=== PATIENT | female | born 1960 | race Caucasian/White ===

== ENCOUNTER 2017-02-19 07:32 | Emergency (ER) | payer BC ==
[2017-02-19 07:40] VITALS: BP 158/80
--- NOTE | 2017-02-19 08:21 | UC ---
Back Pain HPI - HPI Summary HPI Summary: 56 yo female with lower back pain/spasms x 1 week lifts a lot at work and that worsens symptoms no radiation of pain no UTI symptoms no bowel /bladder dysfunction - History of Current Complaint Chief Complaint: UCBackPain Stated Complaint: BACK SPASMS Time Seen by Provider: 02/19/17 08:20 Hx Obtained From: Patient Hx Last Menstrual Period: about age 49 Onset/Duration: Gradual Onset, Lasting Days Timing: Constant Severity Initially: Moderate Severity Currently: Moderate Pain Intensity: 6 - declines analgesic Pain Scale Used: 0-10 Numeric Character: Sharp, Aching, Throbbing Aggravating: Movement, Lifting, Bending Alleviating: OTC Meds Associated Signs And Symptoms: Positive: Negative Related History: Previous Back Injury - Allergies/Home Medications Allergies/Adverse Reactions: Allergies Allergy/AdvReac Type Severity Reaction Status Date / Time Codeine AdvReac Nausea Verified 02/19/17 07:41 PMH/Surg Hx/FS Hx/Imm Hx Previously Healthy: Yes Cardiovascular History Of: Reports: Cardiac Disorders - CT and stents 2011, Hypertension - Surgical History Surgical History: Yes Surgery Procedure, Year, and Place: Right knee 1974; left knee 1985, appy, b/l inguinal hernia - Family History Known Family History: Positive: Hypertension - Social History Alcohol Use: Daily Alcohol Amount: 4 beers Substance Use Type: Marijuana Substance Use Comment - Amount & Last Used: 3 times a day Smoking Status (MU): Heavy Every Day Tobacco Smoker Type: Cigarettes Amount Used/How Often: 1 ppd Review of Systems Constitutional: Negative Skin: Negative Eyes: Negative ENT: Negative Respiratory: Negative Cardiovascular: Negative Gastrointestinal: Negative Genitourinary: Negative Motor: Negative Neurovascular: Negative Musculoskeletal: Myalgia Neurological: Negative Psychological: Negative All Other Systems Reviewed And Are Negative: Yes Physical Exam Triage Information Reviewed: Yes Appearance: Well-Appearing, No Pain Distress, Well-Nourished Vital Signs: Initial Vital Signs Temp 98.2 F 02/19/17 07:33 Pulse 69 02/19/17 07:33 Resp 15 02/19/17 07:33 BP 158/80 02/19/17 07:33 Pulse Ox 99 02/19/17 07:33 Vital Signs Reviewed: Yes Eyes: Positive: Conjunctiva Clear ENT: Positive: Hearing grossly normal. Negative: Nasal congestion, Nasal drainage, Trismus, Muffled/hoarse voice Neck: Positive: Supple, Nontender, No Lymphadenopathy Respiratory: Positive: Lungs clear, Normal breath sounds, No respiratory distress, No accessory muscle use Cardiovascular: Positive: RRR, No Murmur Musculoskeletal: Positive: ROM Intact, No Edema Neurological: Positive: Alert Psychological Exam: Normal Skin Exam: Normal Back Pain Course/Dx - Differential Dx/Diagnosis Provider Diagnoses: acute lumbar myofascial strain /spasm Discharge - Discharge Plan Condition: Stable Disposition: HOME Prescriptions: Cyclobenzaprine TAB* [Flexeril TAB*] 5 mg PO TID PRN #12 tab PRN Reason: Spasms Patient Education Materials: Low Back Strain (ED) Forms: *Work Release Referrals: Kriss Ruiz MD [Primary Care Provider] - 1 Week (if not better) Additional Instructions: tylenol PT consult muscle relaxant may cause drowsiness Images Front/Back of Body, Lg ([place]): 1 - pain here. no midline fredy tenderness. (-) SLR. nl gait
== END 2017-02-19 08:40 | disposition home or self-care (01) ==
LOC: UCCORT 07:32
DX: S39.012A Strain of muscle, fascia and tendon of lower back, initial encounter (principal); X50.9XXA Other and unspecified overexertion or strenuous movements or postures, initial encounter; Y93.89 Activity, other specified; Y92.9 Unspecified place or not applicable; Z88.5 Allergy status to narcotic agent; I25.2 Old myocardial infarction; Z95.5 Presence of coronary angioplasty implant and graft; I10 Essential (primary) hypertension; F12.90 Cannabis use, unspecified, uncomplicated; F17.210 Nicotine dependence, cigarettes, uncomplicated
CPT/HCPCS: 99212; G0463

== ENCOUNTER 2017-07-24 07:52 | Emergency (ER) | payer SELFPAY ==
[2017-07-24 08:13] VITALS: BP 150/95
--- NOTE | 2017-07-24 08:24 | UC ---
Respiratory Complaint HPI - HPI Summary HPI Summary: Progressively worse cough, cold congestion over the last several days. No sob except with cough. + green nasal d/c. No rash. No GI issues. 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 - History of Current Complaint Chief Complaint: UCRespiratory Stated Complaint: COUGH,CHEST CONGESTION Time Seen by Provider: 07/24/17 08:13 Hx Obtained From: Patient Hx Last Menstrual Period: about age 49 ?: No - Allergies/Home Medications Allergies/Adverse Reactions: Allergies Allergy/AdvReac Type Severity Reaction Status Date / Time Codeine AdvReac Nausea Verified 07/24/17 08:07 PMH/Surg Hx/FS Hx/Imm Hx Previously Healthy: No - + tobacco - Surgical History Surgical History: Yes Surgery Procedure, Year, and Place: Right knee 1974; left knee 1985, appy, b/l inguinal hernia - Family History Known Family History: Positive: Hypertension - Social History Alcohol Use: Daily Alcohol Amount: 3 beers Substance Use Type: Marijuana Substance Use Comment - Amount & Last Used: 3 times a day Smoking Status (MU): Heavy Every Day Tobacco Smoker Type: Cigarettes Amount Used/How Often: 1 ppd - Immunization History Most Recent Influenza Vaccination: NONE 2017 Review of Systems Constitutional: Fatigue Skin: Negative Eyes: Negative ENT: Ear Ache, Nasal Discharge, Sinus Congestion Respiratory: Cough Cardiovascular: Negative Gastrointestinal: Negative Genitourinary: Negative Motor: Negative Neurovascular: Negative Musculoskeletal: Negative Neurological: Negative Psychological: Negative Is Patient Immunocompromised?: No All Other Systems Reviewed And Are Negative: Yes Physical Exam Triage Information Reviewed: Yes Appearance: Well-Nourished Vital Signs: Initial Vital Signs Temp 97 F 07/24/17 08:08 Pulse 71 07/24/17 08:08 Resp 18 07/24/17 08:08 BP 150/95 07/24/17 08:08 Pulse Ox 95 07/24/17 08:08 Vital Signs Reviewed: Yes Eye Exam: Normal ENT: Positive: Pharyngeal erythema, Nasal congestion, Nasal drainage, TM dull Neck exam: Normal Neck: Positive: Supple, Nontender, No Lymphadenopathy Respiratory Exam: Normal Respiratory: Positive: Chest non-tender, Lungs clear, Wheezing - occas exp wheeze bilat, + ronchorus cough. Cardiovascular Exam: Normal Cardiovascular: Positive: RRR, No Murmur, Pulses Normal, Brisk Capillary Refill Abdominal Exam: Normal Musculoskeletal Exam: Normal Neurological Exam: Normal Psychological Exam: Normal Skin Exam: Normal - no rash visible or reported UC Diagnostic Evaluation - Laboratory O2 Sat by Pulse Oximetry: 95 Respiratory Course/Dx - Course Course Of Treatment: Will start albuterol. She will consider abx - rx e- scribed. Will f/u pcp 1-2 weeks. Will seek medical attention if worse. Work note until Thursday. Questions answered to the best of my ability. - Differential Dx/Diagnosis Provider Diagnoses: Bronchitis. Wheezing. Sinusitis Discharge - Discharge Plan Condition: Stable Disposition: HOME Prescriptions: Albuterol HFA INHALER* [Ventolin HFA Inhaler*] 1 - 2 puff INH Q4H PRN #1 mdi PRN Reason: Wheezing Amoxicillin/Clavulanate TAB* [Augmentin TAB 875*] 875 mg PO BID #20 tab Patient Education Materials: Sinusitis (ED), Bronchospasm (ED), Acute Bronchitis (ED) Forms: *Work Release Referrals: Kriss Ruiz MD [Primary Care Provider] - Additional Instructions: Blood pressure elevated. Follow up primary care physician in the next couple weeks 150/95 Follow up primary care physician in 1-2 weeks for recheck breathing. Seek medical attention for worse or new problem.
== END 2017-07-24 08:37 | disposition home or self-care (01) ==
LOC: UCCORT 07:52
DX: J40 Bronchitis, not specified as acute or chronic (principal); F17.210 Nicotine dependence, cigarettes, uncomplicated; J32.9 Chronic sinusitis, unspecified; Z88.5 Allergy status to narcotic agent
CPT/HCPCS: 99212; G0463

== ENCOUNTER 2018-06-24 07:12 | Emergency (ER) | payer BC ==
[2018-06-24 07:47] VITALS: BP 139/100
--- NOTE | 2018-06-24 08:00 | UC ---
Abdominal Pain Female HPI - HPI Summary HPI Summary: The patient is a 58-year-old female that presents here for evaluation of lower abdominal pain. The pain started on 06/19. The pain has been constant. The pain waxes and wanes. She has had at least 10 episodes of diarrhea a day. Has had some bright red blood per rectum. States that she has hemorrhoids and suspects that her rectal bleeding is due to the hemorrhoids. He has had nausea and averages one episode of vomiting today. She has been passing a lot of gas and burping a lot. She has a history of ulcerative colitis. She feels that her symptoms are due to a flare of the ulcerative colitis. She states that she is here just for a work note. She has had no fever or chills. She feels a little weak and dizzy. During my discussion in obtaining her history I suggested that she go straight to the emergency room. She declined. - History of Current Complaint Chief Complaint: UCAbdominalPain Stated Complaint: STOMACH VOMITING DIARRHEA Time Seen by Provider: 06/24/18 07:34 Hx Obtained From: Patient Hx Last Menstrual Period: 2012 Onset/Duration: Gradual Onset, Lasting Days Timing: Constant Severity Initially: Mild Severity Currently: Moderate Pain Intensity: 7 - refuses rx Pain Scale Used: 0-10 Numeric Location: Suprapubic Radiates: Yes Radiates to: Back, Other - epigastrium Character: Aching, Colicy, Cramping Aggravating Factor(s): Food Alleviating Factor(s): Nothing Associated Signs and Symptoms: Positive: Dizzy, Back Pain - lower, Blood in Stool - brbpr, Decreased Appetite, Nausea, Vomiting, Diarrhea. Negative: Diaphoresis, Fever, Cough, Chest Pain, Constipation, Urinary Symptoms, Vaginal Bleeding, Vaginal Discharge Allergies/Adverse Reactions: Allergies Allergy/AdvReac Type Severity Reaction Status Date / Time codeine AdvReac Nausea Verified 06/24/18 07:43 Home Medications: Home Medications 2nd Bp Med 1 tab PO QPM 06/24/18 [History Confirmed 06/24/18] Cholesterol Med 1 tab PO QPM 06/24/18 [History Confirmed 06/24/18] Lisinopril 20 mg PO QPM 06/24/18 [History Confirmed 06/24/18] PMH/Surg Hx/FS Hx/Imm Hx Endocrine History: Dyslipidemia Cardiovascular History: Cardiac Disease, Hypertension, Myocardial Infarction GI/ History: Other Other GI/ History: ulcerative colitis - Surgical History Surgical History: Yes Surgery Procedure, Year, and Place: Right knee 1974; left knee 1985, appy, b/l inguinal hernia; cardiac stent 2010 - Family History Known Family History: Positive: Hypertension, Respiratory Disease - Social History Alcohol Use: Daily Alcohol Amount: 3 beers Substance Use Type: Marijuana Substance Use Comment - Amount & Last Used: 3 times a day Smoking Status (MU): Heavy Every Day Tobacco Smoker Type: Cigarettes Amount Used/How Often: 1 ppd - Immunization History Most Recent Influenza Vaccination: NONE 2016 Review of Systems Constitutional: Fatigue Gastrointestinal: Abdominal Pain, Vomiting, Diarrhea, Nausea Is Patient Immunocompromised?: No All Other Systems Reviewed And Are Negative: Yes Physical Exam Triage Information Reviewed: Yes Appearance: Well-Nourished, Pain Distress Vital Signs: Initial Vital Signs Temp 97.9 F 06/24/18 07:21 Pulse 79 06/24/18 07:21 Resp 18 06/24/18 07:21 BP 139/100 06/24/18 07:21 Pulse Ox 99 06/24/18 07:21 Vital Signs Reviewed: Yes Eyes: Positive: Conjunctiva Clear ENT: Positive: Hearing grossly normal. Negative: Nasal congestion, Nasal drainage, Trismus, Muffled voice, Hoarse voice Neck: Positive: Supple, Nontender, No Lymphadenopathy Respiratory: Positive: Lungs clear, Normal breath sounds, No respiratory distress, No accessory muscle use Cardiovascular: Positive: RRR, No Murmur Abdomen Description: Positive: Soft, Distended, Other: - tender epigastrium and suprapubically. Negative: Nontender, CVA Tenderness (R), CVA Tenderness (L), Hernia @, McBurney's Point Tenderness, Peritoneal Signs, Pulsatile Mass, Splenomegaly Bowel Sounds: Positive: Present, Hyperactive Musculoskeletal: Positive: ROM Intact, No Edema Neurological: Positive: Alert Psychological Exam: Normal Skin Exam: Normal Abd Pain Female Course/Dx - Course Course Of Treatment: I discussed at length with her my concerns due to her pain level and symptoms. I encouraged her to allow us to transfer her immediately to the emergency room for evaluation of her symptoms. I explained to her that I was concerned that she may have a surgical issue or require IV fluids and/or antibiotics. I thought that she needed imaging of her abdomen. I feel that she needs to have blood work. She declined an EKG being performed here. She declined any intervention in terms of medications for her symptoms. She states that she just needs a work note. An AMA form was signed. She was encouraged to go to the emergency room if she changed her mind. She did allow us to obtain blood work. She states that she will call her primary care physician for a follow-up appointment. - Differential Dx/Diagnosis Provider Diagnoses: acute abdominal pain of uncertain cause Discharge - Sign-Out/Discharge Documenting (check all that apply): Patient Departure All imaging exams completed and their final reports reviewed: No Studies - Discharge Plan Condition: Stable Disposition: AGAINST MEDICAL ADVICE Patient Education Materials: Acute Abdominal Pain (ED) Forms: *Work Release Referrals: Kriss Ruiz MD [Primary Care Provider] - As Soon As Possible Additional Instructions: As discussed I am concerned about your abdominal pain I think you should be evaluated in the ER where you could have stat blood work and imaging if necessary This may be a flare of ulcerative colitis but could also be due to a complication of ulcerative colitis or maybe an entirely unrelated problem You may have a problem that needs IV antibiotic or surgery Please present to the ER if you change your mind...especially if symptoms worsen - Billing Disposition and Condition Condition: STABLE Disposition: Against Medical Advice
[2018-06-24 11:00] LABS: ABS Basophils 0.1 10^3/ul (0-0.2); ABS Eosinophils 0.1 10^3/ul (0-0.6); ABS Lymphocytes 1.9 10^3/ul (1.0-4.8); ABS Monocytes 0.6 10^3/ul (0-0.8); ABS Neutrophils 5.6 10^3/ul (1.5-7.7); ABS Nucleated RBC 0 10^3/ul; Eosinophil % 1.3 % (0-6); Hematocrit 52 % (35-47); Hemoglobin 17.9 g/dl (12.0-16.0); Lymphocyte % 22.6 % (25-47); Mean Corpuscular HGB Conc 34 g/dl (31-36); Mean Corpuscular Hemoglobin 31 pg (27-31); Mean Corpuscular Volume 90 fL (80-97); Mean Platelet Volume 8.1 um3 (7.4-10.4); Nucleated Red Blood Cells % 0; Platelet Count 206 10^3/ul (150-450); Red Blood Count 5.82 10^6/ul (4.00-5.40); Red Cell Distribution Width 13 % (10.5-15); White Blood Count 8.3 10^3/ul (3.5-10.8)
[2018-06-24 11:20] LABS: EGFR Non-African American 93.6 (>60)
== END 2018-06-24 08:15 | disposition left against medical advice (07) ==
LOC: UCCORT 07:12
DX: R10.13 Epigastric pain (principal); R10.30 Lower abdominal pain, unspecified; Z88.5 Allergy status to narcotic agent; I10 Essential (primary) hypertension; I25.2 Old myocardial infarction; F17.210 Nicotine dependence, cigarettes, uncomplicated
CPT/HCPCS: 36415; 80053; 83690; 85025; 99212; G0463

== ENCOUNTER 2018-11-05 09:11 | Emergency (ER) | payer BC ==
[2018-11-05 09:40] VITALS: BP 157/104
--- NOTE | 2018-11-05 10:12 | UC ---
FLU HPI - HPI Summary HPI Summary: Pt presents with three days of nausea, vomiting and diarrhea that has begun to improve. Pt is here because her work requires that she have a doctors note for missing 3 days. - History of Current Complaint Chief Complaint: UCGeneralIllness Stated Complaint: HEADACHE, CHILLS, VOMITING Time Seen by Provider: 11/05/18 10:04 Hx Obtained From: Patient Hx Last Menstrual Period: 2012 ?: No Onset/Duration: Sudden Onset, Lasting Days, Still Present - improving Severity Currently: Moderate Severity Initially: Mild Pain Intensity: 0 Associated Signs & Symptoms: Positive: Fever, Myalgia, Cough, Vomiting, Diarrhea Related Hx: Possible Flu/Infectious Exposure, Smoking - Allergy/Home Medications Allergies/Adverse Reactions: Allergies Allergy/AdvReac Type Severity Reaction Status Date / Time codeine AdvReac Nausea Verified 11/05/18 09:31 Home Medications: Home Medications Atorvastatin* [Lipitor 40 MG*] 40 mg PO DAILY 11/05/18 [History Confirmed ] Hydrochlorothiazide TAB* [Hydrodiuril TAB*] 12.5 mg PO DAILY 11/05/18 [History Confirmed 11/05/18] PMH/Surg Hx/FS Hx/Imm Hx Previously Healthy: Yes Endocrine History: Dyslipidemia Cardiovascular History: Cardiac Disease, Hypertension - Surgical History Surgical History: Yes Surgery Procedure, Year, and Place: Right knee 1974; left knee 1985, appy, b/l inguinal hernia; cardiac stent 2010 - Family History Known Family History: Positive: Hypertension, Respiratory Disease - Social History Occupation: Employed Full-time Lives: With Family Alcohol Use: Daily Alcohol Amount: 3 beers Substance Use Type: Marijuana Substance Use Comment - Amount & Last Used: 3 times a day Smoking Status (MU): Heavy Every Day Tobacco Smoker Type: Cigarettes Amount Used/How Often: 1 ppd Have You Smoked in the Last Year: Yes - Immunization History Most Recent Influenza Vaccination: NONE 2016 Review of Systems All Other Systems Reviewed And Are Negative: Yes Constitutional: Positive: Fever, Chills, Fatigue Skin: Positive: Negative Eyes: Positive: Negative ENT: Positive: Negative Respiratory: Positive: Cough Cardiovascular: Positive: Negative Gastrointestinal: Positive: Abdominal Pain, Vomiting, Diarrhea, Nausea Genitourinary: Positive: Negative Motor: Positive: Negative Neurovascular: Positive: Negative Musculoskeletal: Positive: Myalgia Neurological: Positive: Weakness Psychological: Positive: Negative Is Patient Immunocompromised?: No Physical Exam Triage Information Reviewed: Yes Appearance: Ill-Appearing Vital Signs: Initial Vital Signs Temp 97.1 F 11/05/18 09:34 Pulse 70 11/05/18 09:34 Resp 17 11/05/18 09:34 BP 157/104 11/05/18 09:34 Pulse Ox 99 11/05/18 09:34 Vital Signs Reviewed: Yes Eye Exam: Normal ENT: Positive: Nasal congestion Dental Exam: Normal Neck exam: Normal Respiratory Exam: Normal Cardiovascular Exam: Normal Abdomen Description: Positive: Nontender - generalized discomfort Musculoskeletal Exam: Normal Neurological Exam: Normal Psychological Exam: Normal Skin Exam: Normal Flu Course/Dx - Differential Dx/Diagnosis Differential Diagnosis/HQI/PQRI: Upper Respiratory Infection Provider Diagnosis: Gastroenteritis Discharge - Sign-Out/Discharge Documenting (check all that apply): Patient Departure All imaging exams completed and their final reports reviewed: No Studies - Discharge Plan Condition: Stable Disposition: HOME Prescriptions: Ondansetron HCl [Zofran] 8 mg PO Q8H PRN #15 tablet PRN Reason: Nausea Patient Education Materials: Gastroenteritis (ED), Acute Nausea and Vomiting ( ED) Forms: *Work Release Referrals: [facility] [Outside] - If Needed No Primary Care Phys,NOPCP [Primary Care Provider] - - Billing Disposition and Condition Condition: STABLE Disposition: Home
== END 2018-11-05 10:20 | disposition home or self-care (01) ==
LOC: UCCORT 09:11
DX: K52.9 Noninfective gastroenteritis and colitis, unspecified (principal); Z88.5 Allergy status to narcotic agent; I10 Essential (primary) hypertension; E78.5 Hyperlipidemia, unspecified; F17.210 Nicotine dependence, cigarettes, uncomplicated
CPT/HCPCS: 99212; G0463

== ENCOUNTER 2019-03-22 07:31 | Emergency (ER) | payer BC ==
[2019-03-22 07:50] VITALS: BP 125/81
--- NOTE | 2019-03-22 08:01 | UC ---
Truncal Trauma HPI - HPI Summary HPI Summary: right lower ribs pain x 5 days pain is sharp , 7 out of 10 , worse with movements / deep breathing and coughing , better with rest, + injury , fell backward and hit the corer of her couch on her right flank are concern about broken ribs no sob, - History Of Current Complaint Chief Complaint: UCBackPain Stated Complaint: RT SIDE PAIN Time Seen by Provider: 03/22/19 07:38 Hx Obtained From: Patient Hx Last Menstrual Period: 2012 Onset/Duration: Sudden Onset, Lasting Days - 5, Still Present Onset Of Pain: Immediate Severity Initially: Moderate Severity Currently: Moderate Pain Intensity: 5 Mechanism Of Injury: Blunt Trauma, Direct Blow, Fall From A Standing Position Aggravating Factor(s): Movement, Deep Breathing, Cough Alleviating factor(s): Rest Associated Signs And Symptoms: Negative: SOB, Chest Pain, Cough, Hematuria, Abdominal Pain, Fever, Nausea, Vomiting - Allergies/Home Medications Allergies/Adverse Reactions: Allergies Allergy/AdvReac Type Severity Reaction Status Date / Time codeine AdvReac Nausea Verified 03/22/19 07:46 PMH/Surg Hx/FS Hx/Imm Hx - Additional Past Medical History Additional PMH: ulcerative colitis Cardiovascular History: Cardiac Disease, Hypertension, Myocardial Infarction Other History Of: Hepatitis C - Surgical History Surgical History: Yes Surgery Procedure, Year, and Place: Right knee 1974; left knee 1985, appy, b/l inguinal hernia; cardiac stent 2010 - Family History Known Family History: Positive: Hypertension, Respiratory Disease - Social History Alcohol Use: Occasionally Alcohol Amount: 3 beers Substance Use Type: Marijuana Substance Use Comment - Amount & Last Used: 3 times a day Smoking Status (MU): Heavy Every Day Tobacco Smoker Type: Cigarettes Amount Used/How Often: 1 PPD Length of Time of Smoking/Using Tobacco: On and Off Since Age 10 Have You Smoked in the Last Year: Yes - Immunization History Most Recent Influenza Vaccination: NONE 2016 Review of Systems All Other Systems Reviewed And Are Negative: Yes Constitutional: Positive: Negative Skin: Positive: Negative Eyes: Positive: Negative ENT: Positive: Negative Respiratory: Positive: Negative Is Patient Immunocompromised?: No Physical Exam Triage Information Reviewed: Yes Appearance: Well-Appearing, Well-Nourished, Pain Distress Vital Signs: Initial Vital Signs Temp 97.9 F 03/22/19 07:42 Pulse 76 03/22/19 07:42 Resp 18 03/22/19 07:42 BP 125/81 03/22/19 07:42 Pulse Ox 97 03/22/19 07:42 Vital Signs Reviewed: Yes Eye Exam: Normal Eyes: Positive: Conjunctiva Clear ENT Exam: Normal ENT: Positive: Normal ENT inspection, Hearing grossly normal Neck exam: Normal Neck: Positive: Supple, Nontender Respiratory: Positive: Chest non-tender, Lungs clear, Normal breath sounds, No respiratory distress, No accessory muscle use, Other: - tenderness right lower posterior ribs Cardiovascular: Positive: RRR, No Murmur, Pulses Normal Skin Exam: Normal Diagnostics - Radiology No standard instances Radiology Interpretation Completed By: Radiologist Summary of Radiographic Findings: xray right ribs : IMPRESSION: RIGHT 11TH RIB FRACTURE WITHOUT APPRECIABLE PNEUMOTHORAX. Truncal Trauma Course/Dx - Differential Dx/Diagnosis Provider Diagnosis: Fracture, rib Discharge - Sign-Out/Discharge Documenting (check all that apply): Patient Departure All imaging exams completed and their final reports reviewed: Yes - Discharge Plan Condition: Stable Disposition: HOME Patient Education Materials: Rib Fracture (ED) Forms: *School Release Referrals: Aleena Adams PA [Primary Care Provider] - 5 Days - Billing Disposition and Condition Condition: STABLE Disposition: Home
== END 2019-03-22 08:30 | disposition home or self-care (01) ==
LOC: UCCORT 07:31
DX: S22.31XA Fracture of one rib, right side, initial encounter for closed fracture (principal); W19.XXXA Unspecified fall, initial encounter; I10 Essential (primary) hypertension; F17.210 Nicotine dependence, cigarettes, uncomplicated
CPT/HCPCS: 99211; G0463